=== PATIENT | male | born 1995 | race Asian ===

== ENCOUNTER 2017-10-03 21:15 | Inpatient (IN) | payer OTHER ==
[2017-10-03] MEDS ORDERED: ONDANSETRON PF 4 MG/2 ML VIAL. IV (22:00)
[2017-10-03] MEDS: IV NORMAL SALINE 1000ML BAG 1,000 ML IV (22:00)
[2017-10-03] MEDS: MORPHINE SULFATE 4 MG/ML DISP.SYRIN. IV ×2 (22:29→22:54)
[2017-10-04] MEDS: MORPHINE SULFATE 4 MG/ML DISP.SYRIN. IV ×2 (02:24→05:15)
[2017-10-04 05:55] LABS: HEMATOCRIT 37.5 % (39.0-53.0); HEMOGLOBIN 13.4 g/dL (13.0-17.5); MEAN CORPUSCULAR HEMOGLOBIN 31 pg (25-35); MEAN CORPUSCULAR HGB CONC 36 g/dL (31-37); MEAN CORPUSCULAR VOLUME 86 fL (79-100); PLATELET COUNT 215 x10^3/uL (140-400); RED BLOOD COUNT 4.37 x10^6/uL (4.30-5.70); RED CELL DISTRIBUTION WIDTH 12.9 % (11.5-14.5); WHITE BLOOD COUNT 7.4 x10^3/uL (4.0-11.0)
[2017-10-04 06:08] LABS: ANION GAP 9 (6-14); BLOOD UREA NITROGEN 11 mg/dL (8-26); CARBON DIOXIDE 27 mmol/L (21-32); CHLORIDE 104 mmol/L (98-107); CREATININE 1.3 mg/dL (0.7-1.3); GFR 68.4; GLUCOSE 99 mg/dL (70-99); POTASSIUM 3.8 mmol/L (3.5-5.1); SODIUM 140 mmol/L (136-145)
[2017-10-04] MEDS: fentaNYL PF VIAL 100 MCG/2 ML VIAL IV ×4 (07:01→13:44)
[2017-10-04] MEDS: IV NORMAL SALINE 1000ML BAG 1,000 ML IV (11:27)
[2017-10-04] MEDS: IV RINGERS,LACTATED 1000ML 1,000 ML IV ×2 (12:52→18:00)
[2017-10-04] MEDS ORDERED: ONDANSETRON PF 4 MG/2 ML VIAL. IV (13:00)
[2017-10-04] MEDS ORDERED: LIDOCAINE 1% PF 2 ML VIAL. ID (13:00)
[2017-10-04] MEDS ORDERED: fentaNYL PF VIAL 100 MCG/2 ML VIAL IV ×2 (13:00)
[2017-10-04] MEDS ORDERED: MORPHINE SULFATE 4 MG/ML DISP.SYRIN. IV (13:00)
[2017-10-04] MEDS ORDERED: PROCHLORPERAZINE 10 MG/2 ML VIAL. IV (13:00)
[2017-10-04] MEDS ORDERED: fentaNYL PF VIAL 100 MCG/2 ML VIAL ×2 (13:43→15:12)
[2017-10-04] MEDS ORDERED: ROCURONIUM 50 MG/5 ML VIAL. (13:43)
[2017-10-04] MEDS ORDERED: DEXAMETHASONE SOD PHOS 20 MG/5 ML VIAL. (13:44)
[2017-10-04] MEDS ORDERED: KETOROLAC 30 MG/ML INJ FOR OR. INJ (13:44)
[2017-10-04] MEDS ORDERED: ONDANSETRON PF 4 MG/2 ML VIAL. (13:44)
[2017-10-04] MEDS ORDERED: PROPOFOL 20 ML IV (13:44)
[2017-10-04] MEDS ORDERED: SEVOFLURANE 31 TO 60 MINUTES. IH (13:45)
[2017-10-04] MEDS: BUPIVAC MPF-EPI 0.5%-1:200000 30 ML VIAL. (15:37)
[2017-10-04] MEDS ORDERED: NEOSTIGMINE METHYLSULFATE 5 MG/5 ML SYRINGE. (15:52)
[2017-10-04] MEDS ORDERED: GLYCOPYRROLATE 1 MG/5 ML VIAL. (15:53)
[2017-10-04] MEDS ORDERED: HYDROcodone/APAP 5/325MG 1 TAB TABLET PO (16:15)
[2017-10-04] MEDS ORDERED: KETOROLAC 15 MG/ML VIAL. IV (16:15)
[2017-10-04] MEDS ORDERED: 0.9 % SODIUM CHLORIDE 10 ML DISP.SYRIN. IV (16:15)
[2017-10-04] MEDS ORDERED: LACTOBACILLUS RHAMNOSUS GG 1 CAPSULE. PO (21:00)
[2017-10-04] MEDS ORDERED: DOCUSATE SODIUM 100 MG CAPSULE. PO (21:00)
== END 2017-10-04 19:31 | disposition home or self-care (01) | DRG 340 ==
LOC: 4 NORTH 21:15
PROC: 0DTJ4ZZ Resection of Appendix, Percutaneous Endoscopic Approach (ICD-10-PCS; principal; 2017-10-04 15:00)
DX: K35.3 Acute appendicitis with localized peritonitis (principal); K38.1 Appendicular concretions
CPT/HCPCS: 36415; 80048; 85027; A7015; J1100; J1885; J1956; J2270; J2405; J2704; J2710; J3010; J3490; J7030